=== PATIENT | male | born 1955 | race Caucasian/White ===

== ENCOUNTER 2022-05-18 09:04 | Observation (INO) ==
--- NOTE | 2022-03-11 08:59 | PAT Medication Instructions ---
Medication Instructions Date of Service March 11, 2022 Home Medications acetaminophen 500 mg tablet 1,000 - 1,500 mg PO Q6H PRN amlodipine 10 mg-benazepril 40 mg capsule 1 cap PO QPM aspirin 81 mg tablet,delayed release 81 mg PO QAM dulaglutide 0.75 mg/0.5 mL subcutaneous pen injector (Trulicity) 0 mg SUBCUT WK escitalopram oxalate 20 mg tablet (Lexapro) 20 mg PO HS hydrochlorothiazide 12.5 mg capsule 12.5 mg PO QAM insulin glargine 100 unit/mL (3 mL) subcutaneous pen (Basaglar KwikPen U-100 Insulin) 74 unit SUBCUT HS simvastatin 20 mg tablet 20 mg PO HS Continue as directed dulaglutide 0.75 mg/0.5 mL subcutaneous pen injector (Trulicity) 0 mg SUBCUT WK (not day of surgery) DO NOT take the morning of surgery hydrochlorothiazide 12.5 mg capsule 12.5 mg PO QAM Take morning of surgery With a small sip of water, OTHERWISE NOTHING TO EAT OR DRINK AFTER MIDNIGHT: acetaminophen 500 mg tablet 1,000 - 1,500 mg PO Q6H PRN(okay to take up to 4 hours prior to surgery if needed) aspirin 81 mg tablet,delayed release 81 mg PO QAM (unless directed otherwise by surgeon) Take evening before surgery acetaminophen 500 mg tablet 1,000 - 1,500 mg PO Q6H PRN(if needed) amlodipine 10 mg-benazepril 40 mg capsule 1 cap PO QPM escitalopram oxalate 20 mg tablet (Lexapro) 20 mg PO HS simvastatin 20 mg tablet 20 mg PO HS insulin glargine 100 unit/mL (3 mL) subcutaneous pen (Basaglar KwikPen U-100 Insulin) 74 unit SUBCUT HS Other Notes If you have any questions please call us at [phone] or [phone] or [phone] or [phone]
--- NOTE | 2022-04-15 09:51 | Anesthesiology Consultation ---
Date of Service April 15, 2022 Assessment & Plan (1) Encounter for pre-operative examination: - COVID screening: Per assessment on 04/15: No known COVID-19 positive contacts or current COVID-19 related symptoms. Travel screen negative. Patient not vacci nated and reports only wearing mask in medical facilities. Since patient requiring admission post-operatively and non-compliance with mask wearing in public, will recheck with COVID [place] AM DOS. Order placed. - Check BSG AM DOS - Hx anesthesia issues: Per patient, spinal took multiple attempts with remote ankle surgery- he states he was told it was d/t "thick muscles" in the region. Discussed SAB vs. GA. OR aware of possible general anesthesia. Chart Review Chart Review: Acceptable Risk for Surgery and Patient seen in Pre Admission Testing Teaching & Discussion Pre-Anesthesia Teaching/Discussion Notes: Instructed NPO after midnight before surgery,except medications with 15 cc of water. Medication instructions provided according to the PAT guidelines. History Surgery Operation Date: 05/18/22 12:50 Proposed Procedures p Right Total Knee Arthroplasty - Carl Vicente DO Height/Weight Height: 6 ft 2 in Weight: 115.3 kg Allergies Allergy/AdvReac Type Severity Reaction Status Date / Time naproxen AdvReac Severe Anaphylaxis Verified 04/12/22 13:20 Medications Home Medications Medication Instructions Recorded Confirmed Last Taken acetaminophen 500 mg tablet 1,000 - 1,500 mg PO Q6H PRN 03/10/22 04/12/22 Unknown amlodipine 10 mg-benazepril 40 mg 1 cap PO QPM 03/10/22 04/12/22 Unknown capsule aspirin 81 mg tablet,delayed 81 mg PO QAM 03/10/22 04/12/22 Unknown release dulaglutide 0.75 mg/0.5 mL 0 mg SUBCUT WK 03/10/22 04/12/22 Unknown subcutaneous pen injector (Trulicity) escitalopram oxalate 20 mg tablet 20 mg PO HS 03/10/22 04/12/22 Unknown (Lexapro) hydrochlorothiazide 12.5 mg capsule 12.5 mg PO QAM 03/10/22 04/12/22 Unknown insulin glargine 100 unit/mL (3 74 unit SUBCUT HS 03/10/22 04/12/22 Unknown mL) subcutaneous pen (Osvaldoaglar Mery U-100 Insulin) simvastatin 20 mg tablet 20 mg PO HS 03/10/22 04/12/22 Unknown Past Medical History Medical History Diabetes mellitus, type 2 IDDM Hyperlipidemia Hypertension Kidney stones Post traumatic stress disorder Exercise / Class Metabolic Activity II 4-5 Yardwork/Stairs/Walk up hill (one FS (no CP, no SOB)) Past Family History Family History Grandfather (Paternal) Family history of diabetes mellitus Past Surgical History Surgical History History of ankle surgery RIGHT X2 History of arthroscopy RIGHT KNEE X2 History of arthroscopy LEFT KNEE X1 History of cardiac cath 30 YRS AGO > NO STENTS History of colonoscopy 2020 History of rectal surgery Past Anesthesia History No Hx of Anesthesia Complications and No Family Hx of Anesthesia Complications History of PONV No Hx of PONV and No Hx of Motion Sickness Social History Smoking Status: Never smoker Do You Dip or Chew Tobacco: No Hx Alcohol Use: Yes alcohol intake frequency: holidays/special occasions only Hx Substance Use: No Review of Systems Patient denies chest pain, shortness of breath, dyspnea on exertion, fever, chills, cough, wheezing, palpitations. Physical Exam Vital Signs VITALS BP 137/75 P 73 TEMP 98.2 SP02 95%RA RESP 16 PHYSICAL Full cervical extension range of motion. Full TMJ range of motion. TMD 3 finger breaths Mallampati Score 3 Dentition: intact, several crowns Lungs: clear throughout to auscultation Cardiac: regular rate and rhythm, no murmurs noted Spine: normal Carotid arteries: negative bruit Extremities: no edema Lab Results Anesthesia Preop Results Results Anesthesia Widget: WBC 8.48 K/uL (4.8-10.8) 04/15/22 Hgb 13.9 g/dL (14.0-18.0) L 04/15/22 Hct 40.7 % (42-52) L 04/15/22 Plt 266 K/uL (130-400) 04/15/22 Na 136 mmol/L (136-145) 04/15/22 K 3.8 mmol/L (3.5-5.1) 04/15/22 Cl 103 mmol/L (98-107) 04/15/22 CO2 26 mmol/L (21-32) 04/15/22 BUN 22 mg/dl (6-23) 04/15/22 Creat 1.04 mg/dl (0.6-1.4) 04/15/22 Glucose Level 332 mg/dl (70-99(Fasting)) H* 04/15/22 PT 10.0 Seconds (9.0-12.0) 04/15/22 PTT 25.3 Seconds (21.0-31.0) 04/15/22 INR 0.9 (0.9-1.1) 04/15/22 HA1c 7.6 % (4.5-5.6) H 04/15/22 Urine Color Yellow 04/15/22 Urine Appearance Clear (Clear) 04/15/22 Urine pH 5.0 (4.5-7.5) 04/15/22 Urine Specific [place] 1.027 (1.000-1.030) 04/15/22 Urine Protein Negative (Negative) 04/15/22 Urine Glucose (UA) 3+ (Negative) H 04/15/22 Urine Ketones Negative (Negative) 04/15/22 Urine Blood 3+ (Negative) H 04/15/22 Urine Nitrite Negative (Negative) 04/15/22 Urine Bilirubin Negative (Negative) 04/15/22 Urine Urobilinogen Negative (Negative) 04/15/22 Urine Leukocyte Esterase Negative (Negative) 04/15/22 Urine WBC (Auto) 1-5 /hpf (0-5) 04/15/22 Urine RBC (Auto) 10-30 /hpf (0-4) H 04/15/22 Urine Hyaline Casts (Auto) 1-5 /lpf (0-5) 04/15/22 Urine Epithelial Cells (Auto) >30 /lpf (0-5) H 04/15/22 Urine Bacteria (Auto) Negative (Negative) 04/15/22 Blood Type A Negative 04/15/22 Antibody Screen NEGATIVE 04/15/22 Testing Laboratory Results Glucose elevated at 332 but A1C 7.6% (EAG > 171) Roxana at surgeon's office made aware* Electrocardiogram Date: 04/15/22 NSR at 73bpm. Chest X-Ray Date: 04/15/22 Findings: + NAD
--- NOTE | 2022-04-25 08:11 | History & Physical Report ---
Date of Service April 25, 2022 date of surgery: 05/18/22 Procedure: Right Total Knee Arthroplasty Surgeon: Carl Vicente Assessment & Plan (1) Arthritis of right knee: Plan: Further care discussed with patient and at this point in time has failed conservative measures and would like to proceed with a right total knee replacement. Plan on discharge will be home with home health physical therapy. DVT prophylaxiswith TEDs, SCDs and will also place on aspirin 81 mg p.o. b.i.d. for a month postop. Patient will have follow up appointment in our office two weeks post op for staple/suture removal and re-evaluation. Patient otherwise has no other questions or concerns. The risks and benefits have been discussed including, but not limited to, risk of infection, nerve injury, stiffness, loss of motion, failure to improve, etc. Reasonable outcomes and options of treatment were discussed. An explanation of appropriate alternatives to the procedure that may be advantageous were discussed and their risks and benefits, as well as the risks and benefits of not proceeding with treatment. I offered to answer any additional inquiries concerning the treatment involved. All the patient's questions were answered. The patient is agreeable, understanding of the treatment plan and alternatives, and wishes to proceed with the treatment plan. History of Present Illness Chief Complaint: Right knee pain Primary Care Provider: MD Javier Parson is a 66 year old male who complains of right knee pain, presents for pre- op evaluation prior to a right total knee replacement by Dr Vicente at [facility]. He complains of pain and stiffness in his right knee. He states that the symptoms occur constantly with intermittent worsening and that his symptoms are moderate- severe. The pain is described as aching, sharp and throbbing and rated as 7/10. His symptoms are aggravated by ascending stairs, daily activities, first steps while awake walking. He is unable to take NSAIDs due to allergy. He has been treated with previous visco injections in the past without much relief. He has prior history of right knee ACL repair in 1999 in [place]. Allergies Allergy/AdvReac Type Severity Reaction Status Date / Time naproxen AdvReac Severe Anaphylaxis Verified 04/12/22 13:20 Home Medications Medication Instructions Recorded Confirmed Type acetaminophen 500 mg tablet 1,000 - 1,500 mg PO Q6H PRN 03/10/22 04/12/22 History amlodipine 10 mg-benazepril 40 mg 1 cap PO QPM 03/10/22 04/12/22 History capsule aspirin 81 mg tablet,delayed 81 mg PO QAM 03/10/22 04/12/22 History release dulaglutide 0.75 mg/0.5 mL 0 mg SUBCUT WK 03/10/22 04/12/22 History subcutaneous pen injector (Trulicity) escitalopram oxalate 20 mg tablet 20 mg PO HS 03/10/22 04/12/22 History (Lexapro) hydrochlorothiazide 12.5 mg capsule 12.5 mg PO QAM 03/10/22 04/12/22 History insulin glargine 100 unit/mL (3 74 unit SUBCUT HS 03/10/22 04/12/22 History mL) subcutaneous pen (Basaglar KwikPen U-100 Insulin) simvastatin 20 mg tablet 20 mg PO HS 03/10/22 04/12/22 History Past Med/Surg History Medical History Diabetes mellitus, type 2 IDDM Hyperlipidemia Hypertension Kidney stones Post traumatic stress disorder Surgical History History of ankle surgery RIGHT X2 History of arthroscopy RIGHT KNEE X2 History of arthroscopy LEFT KNEE X1 History of cardiac cath 30 YRS AGO > NO STENTS History of colonoscopy 2020 History of rectal surgery Family History Grandfather (Paternal) Family history of diabetes mellitus Social History Smoking Status: Never smoker Second Hand Exposure: No; Hx Alcohol Use: Yes Hx Substance Use: No Preferred Language: Andorran Communication Ability: Effective Crimper Assembler Required: No Beliefs That Will Affect Care: None Current Living Situation: Spouse current occupational status: retired Feels Safe at Home: Yes Assistive Devices: None Review of Systems Review of Systems: All systems reviewed & are unremarkable except as noted in HPI & below Constitutional: no fever, no chills and no sweats Respiratory: no cough and no dyspnea Cardiovascular: no chest pain, no dyspnea and no orthopnea Gastrointestinal: no abdominal pain, no nausea and no vomiting Musculoskeletal: as per Subjective / HPI Physical Exam Physical Exam: HT: 6ft 2in WT: 115.3kg Constitutional: WD/WN, vitals as above no acute distress Respiratory: normal respiratory effort, lungs clear to auscultation no respiratory distress, no labored breathing and does not use accessory muscles Cardiovascular: RRR, no murmur, no edema Gastrointestinal (Abdomen): normal bowel sounds, soft, nontender, no hepatosplenomegaly Musculoskeletal: Knee: + knee abnormal to inspection (RIGHT KNEE- ), + effusion (+1 effusion), + surgical incision (well healed portals), + limited ROM of knee (ROM 0/3/110), + knee ROM with crepitation, + joint line tenderness (medial joint line) and + Jazzmine's sign positive; no deformity, no skin erythema, no ecchymosis, no valgus laxity, no varus laxity, anterior drawer test negative, John's sign negative and pivot shift test negative Results & Data Results & Data ([facility]) Diagnostic Findings Right Knee X-ray: Right knee series showing advanced degenerative changes to the right knee, narrowing of the medial compartment and patello-femoral joint with patellar spurring noted, findings showing joint space narrowing of the medial compartment and patello-femoral joint, osteophyte formation and subchondral sclerosis noted, femoral screw in place from prior ACL surgery. overall varus alignment. no acute bony pathology noted.
[~2022-05-18 09:04] MED LIST: ACETAMINOPHEN 500 MG TAB PO SCH; ALLERGY Noted to ORDERED Medication SCH; BUPIVACAINE 0.25% 30 ML VIAL ONE; BUPIVACAINE 0.5 % 5 MG/1 ML PF 10ML VIAL ONE; DEXAMETHASONE SOD INJ 4 MG/ML VIAL ONE; EPINEPHrine INJ 1 MG/ML AMP ONE; FAMOTIDINE 20 MG TAB PO SCH; GABAPENTIN 300 MG CAP PO SCH; LR 500ML BOLUS, THEN 15ML/HR IV SCH; METOCLOPRAMIDE HCL 10 MG TABLET PO SCH; ROPIVACAINE 0.5% HCL/PF 150 MG, BUPIVACAINE 0.75% MPF 20 ML, EPINEPHrine 30MG/30ML (OR ... INFIL SCH; TRANEXAMIC ACID 1,000 MG **IV Intra-op IV SCH; TRANEXAMIC ACID 1,000 MG **IV Pre-op IV SCH; ceFAZolin 2000MG 2,000 MG/15 ML SYR IV SCH; dexAMETHasone 4 MG TAB PO SCH; oxyCODONE HCL 10 MG TABCR (OxyCONTIN) PO SCH
--- NOTE | 2022-05-18 10:02 | History & Physical Bridge Note ---
Date of Service May 18, 2022 History & Physical Bridge Note I have examined the patient, reviewed the History & Physical and in the interval since the performance of the History & Physical I have noted the following changes of clinical significance: no changes noted
[2022-05-18] MEDS ORDERED: PROPOFOL IV EMULSION 10 MG/ML 20 ML VIAL IV ONE (10:09)
[2022-05-18] MEDS ORDERED: ePHEDrine sulfate 50 MG/ML AMP ONE (10:09)
[2022-05-18] MEDS ORDERED: LIDOCAINE 2% 2 ML VIAL/AMP(20MG/ML) INFIL ONE (10:09)
[2022-05-18] MEDS ORDERED: fentaNYL citrate 100 MCG/2 ML VIAL ONE (10:09)
[2022-05-18] MEDS ORDERED: MIDAZOLAM HCL 1 MG/ML 2ML VIAL ONE (10:09)
[2022-05-18] MEDS ORDERED: ORTHO JOINT ANESTHETIC ONE (11:38)
[2022-05-18] MEDS ORDERED: fentaNYL citrate 100 MCG/2 ML VIAL IV PRN (12:22)
[2022-05-18] MEDS ORDERED: ATROPINE SULFATE 0.1 MG/ML 10ML SYR IV PRN (12:22)
[2022-05-18] MEDS ORDERED: ONDANSETRON INJ 2 MG/ML 2 ML VIAL IV PRN ×2 (12:22→16:12)
[2022-05-18] MEDS ORDERED: ePHEDrine sulfate 50 MG/ML AMP IV PRN (12:22)
--- NOTE | 2022-05-18 14:02 | Operative Report ---
Post Operative Report Pre & Post Diagnosis Operation Date: 05/18/22 11:40 Pre-Op Diagnosis: Right Knee Osteoarthritis Post-Op Diagnosis: Right Knee Osteoarthritis I identified the patient and participated in the time-out.: Yes Procedure Operation Date: 05/18/22 11:40 Actual Procedures p Right Total Knee Arthroplasty(Right) utilizing [employer] persona patient matched size femur 12 standard tibia G polyten patella 34 oval Carl Vicente DO Surgeon Carl Vicente DO [facility] DAVID Mendoza Estimated Blood Loss 5 Findings Consistent with Post-Op Diagnosis Patient presents with severe end-stage tricompartmental degenerative joint disease and remote history of ACL reconstruction with marked anterior scarring and fibrosis tightness around his patellar tendon he had severe end-stage tricompartmental DJD varus alignment eburnated [id number] with a moderate to large effusion Specimens Bone and cartilage Drains Medium bore Hemovac Anesthesia Type MAC Spinal Regional Complications none Disposition Accompanied Patient To Recovery: No Disposition: Recovery Room Indications Patient presents with severe end-stage tricompartmental DJD right knee after failed attempted conservative management clinic physical therapy anti- inflammatories relative rest activity modification steroid injection viscosupplementation the above intraoperative findings were noted Description of Procedure After proper prepping and draping of the Right lower extremity anterior midline incision was made over the region of the extensor extensor mechanism after meticulous hemostasis was obtained and maintained in subcutaneous tissues a medial parapatellar incision was made The patella was subluxed lateralward the medial lateral gutter were cleaned from any hypertrophic synovitis and scar tissue of the distal femoral block was placed and the distal femoral osteotomy cut was made subsequently the chamfers anterior and posterior osteotomy cuts were made utilizing the 4-in-1 block the tibia was subsequently subluxed anteriorward medial and ateral meniscal remnants were excised in their entirety remnants of the anterior and posterior cruciate ligaments were excised in their entirety excellent exposure of the proximal tibia was obtained the tibial osteotomy guide was placed on the proximal tibial osteotomy cut was made once again the knee was irrigated with copious amounts of sterile saline solution the patella was subsequently everted lateralward thickened scar tissue around the patella was removed the patella was subsequently cut utilizing a freehand technique and was drilled prepared for final preparation and placement of patella socially flexion-extension gaps were checked and the equal and symmetric trials were placed to the appropriate femoral and tibial trials with poly-spacer being placed for equal flexion and extension gaps and full range of motion including extension to 0 and flexion to 140 the trial components after having been taken to recovery range of motion was subsequently removed meticulous hemostasis was obtained and maintained subsequently a knee block injection of joint cocktail including ropivacaine 0.5% 150 mg. Bupivacaine 0.5% epinephrine 1-200,030 mL's toradol 30 mg dexamethasone 4 mg ketamine 10 mg clonidine 100 micrograms normal saline solution 30 mg was infiltrated into the soft tissues of the posterior knee medial lateral gutters and periosteal synovium special attention was paid to protect neurovascular structures at all times subsequently trial components having been removed the knee was irrigated with sterile saline solution. debris was removed the proximal tibia was subsequently prepared and was made ready for the placement of the tibial component tibial component was also cemented and tamped into position the femoral component was subsequently placed and cemented in the position the patellar component was subsequently cemented in position because hemostasis once again obtained and maintained wound having been thoroughly irrigated with debridement and debridement lavage was performed as well as a medial parapatellar incision closed with #1 Vicryl in interrupted fashion subcutaneous was closed with #2 Vicryl skin was closed with skin clips. PA-C was necessary for prepping and drapping as well as wound closure of deep fascia Sub cutaneous tissue and skin and was necessary for the case. A sterile compressive dressing was placed patient was taken to recovery in stable condition of report dictated by Jules I attest to the content of the Intraoperative Record and any orders documented therein. Any exceptions are noted below.Due to the complex nature of the procedure, the entire surgery was performed with the operational assistance of DAVID Mendoza The credentialing assistant, under direct supervision, was involved in the actual performance of all aspects of the surgical procedure including hemostasis, tissue retraction and incision, instrument management, patient positioning, and wound closure. I attest to the content of the Intraoperative Record and any orders documented therein. Any exceptions are noted below.
--- NOTE | 2022-05-18 14:58 | XRay Report ---
XR knee RT 1 or 2V routine HISTORY: 66 years-old Male Surgical Post Op right knee total joint replacement COMPARISON: CT of the right knee 04/15/2022 TECHNIQUE: 2 views of the right knee FINDINGS: Total joint arthroplasty with patellar resurfacing. Surgical drainage catheter is present along with expected postoperative soft tissue swelling with deep tissue air. Degenerative marginal spurring of t he patella. Arterial calcifications. No acute fracture, malalignment or unexpected opaque foreign bod y. IMPRESSION: Total joint arthroplasty with expected postoperative changes. ACT 112: Negative or not required by law. The above report was generated using voice recognition software. It may contain grammatical, syntax o r spelling errors. Electronically signed by: Rony Howard M.D. 05/18/2022 2:56 PM
--- NOTE | 2022-05-18 15:32 | Anesthesiology Progress Note ---
Date of Service May 18, 2022 Anesthesia Post Procedure Vital Signs Vital Signs: Temp Pulse Pulse Resp BP Pulse Ox 05/18/22 15:15 36.5 C 84 20 107/68 94 05/18/22 15:05 78 20 113/64 93 05/18/22 14:55 76 20 129/67 94 05/18/22 14:45 81 12 114/67 95 05/18/22 14:36 36.7 C 85 16 108/66 95 05/18/22 09:32 36.9 C 78 20 131/73 97 Transfer of Care Handoff Completed per policy Notes Mental Status: alert / awake / arousable Patient Amnestic to Procedure: Yes Nausea / Vomiting: adequately controlled Pain: adequately controlled Airway Patency, RR, SpO2: stable & adequate BP & HR: stable & adequate Hydration State: stable & adequate Neuraxial Anesthesia: was administered and sensory block is resolving Anesthetic Complications: no major complications apparent
[2022-05-18] MEDS ORDERED: INFLUENZA VACCINE HIGH DOSE PF 65+ 0.7 ML SYR IM ONE (16:11)
[2022-05-18] MEDS ORDERED: METOCLOPRAMIDE HCL INJ 5 MG/ML 2 ML VIAL IV PRN (16:12)
[2022-05-18] MEDS ORDERED: MAGNESIUM HYDROXIDE SUSP 30 ML UDC PO PRN (16:12)
[2022-05-18] MEDS ORDERED: HYDROmorphone INJ 1 MG/ML SYRINGE IV PRN (16:12)
[2022-05-18] MEDS ORDERED: bisacodyL 10 MG SUPP PR PRN (16:12)
[2022-05-18] MEDS ORDERED: NALOXONE HCL 0.4 MG/1 ML VIAL/CARP IV PRN (16:12)
[2022-05-18] MEDS ORDERED: PHARMACY GLYCEMIC MGMT CONSULT PRN (16:12)
[2022-05-18] MEDS ORDERED: diphenhydrAMINE Capsule 25 MG CAP PO PRN (16:12)
[2022-05-18] MEDS ORDERED: DEXTROSE 50% 50 ML SYRINGE IV PRN (16:30)
[2022-05-18] MEDS ORDERED: CARBOHYDRATES FOR HYPOGLYCEMIA PO PRN (16:30)
[2022-05-18] MEDS ORDERED: GLUCOSE 10 TABS/TUBE PO PRN (16:30)
[2022-05-18] MEDS ORDERED: GLUCAGON FOR INJ 1 MG VIAL IM PRN (16:30)
[2022-05-18] MEDS ORDERED: GLUCOSE 40% GEL 15 GM TUBE PO PRN (16:30)
[2022-05-18] MEDS: SODIUM CHLORIDE 0.9% 1000ML 1,000 ML IV SCH ×2 (16:59→17:05)
[2022-05-18] MEDS: INSULIN ASPART PER UNIT SC SCH ×2 (17:22→22:13)
[2022-05-18] MEDS: DOCUSATE SODIUM 100 MG CAP PO SCH (20:11)
[2022-05-18] MEDS: ceFAZolin 2000MG 2,000 MG/15 ML SYR IV SCH (20:18)
[2022-05-18] MEDS ORDERED: SIMVASTATIN 20 MG TAB PO SCH (21:00)
[2022-05-18] MEDS ORDERED: INSULIN GLARGINE SOLOSTAR 100 UNITS/ML 3 ML PEN SQ SCH (21:00)
[2022-05-18] MEDS ORDERED: SENNA 8.6 MG TAB PO SCH (21:00)
[2022-05-18] MEDS ORDERED: ESCITALOPRAM OXALATE 20 MG TAB PO SCH (21:00)
[2022-05-18] MEDS ORDERED: ENALAPRIL MALEATE 10 MG TAB PO SCH (21:30)
[2022-05-18] MEDS ORDERED: amLODIPine BESYLATE 5 MG TAB PO SCH (21:30)
[2022-05-18] MEDS: LANTUS PER UNIT CHARGE SQ SCH (22:14)
[2022-05-18] MEDS: ACETAMINOPHEN 500 MG TAB PO SCH (22:17)
[2022-05-19] MEDS: INSULIN ASPART PER UNIT SC SCH ×4 (00:54→12:35)
[2022-05-19] MEDS: ceFAZolin 2000MG 2,000 MG/15 ML SYR IV SCH (04:43)
[2022-05-19] MEDS: oxyCODONE HCL IR 5 MG TAB (IMMEDIATE RELEASE) PO PRN ×2 (05:04→14:57)
[2022-05-19 06:25] LABS: Hematocrit (blood only) 35.7 % (42-52); Hemoglobin 12.3 g/dL (14.0-18.0); Mean Corpuscular Hemoglobin 31.5 pg (25-34); Mean Corpuscular Hgb Conc 34.5 g/dL (32-36); Mean Corpuscular Volume 91.5 fL (80-100); Mean Platelet Volume 9.1 fL (7.4-10.4); Platelet Count 258 K/uL (130-400); RDW Coefficient of Variation 13.4 % (11.5-14.5); RDW Standard Deviation 44.7 fL (36.4-46.3)
[2022-05-19] MEDS: ACETAMINOPHEN 500 MG TAB PO SCH ×2 (06:38→13:51)
[2022-05-19 06:46] LABS: BUN Creatinine Ratio 25.7 (10-20); Calcium 8.6 mg/dl (8.5-10.1); Creatinine Clr Calc Pharmacy 88.1 ml/min; Est GFR (Non-African American) 69.9 ml/min; Potassium 3.9 mmol/L (3.5-5.1)
[2022-05-19] MEDS: DOCUSATE SODIUM 100 MG CAP PO SCH (08:17)
[2022-05-19] MEDS: LANTUS PER UNIT CHARGE SQ SCH (08:25)
[2022-05-19] MEDS ORDERED: MULTIVITAMIN TAB PO SCH (09:00)
[2022-05-19] MEDS ORDERED: ESCITALOPRAM OXALATE 20 MG TAB PO SCH (09:00)
[2022-05-19] MEDS ORDERED: RIVAROXABAN 10 MG TABLET PO SCH (09:00)
--- NOTE | 2022-05-19 09:05 | Pharmacy Report ---
Pharmacy Glycemic Short Note 2 - Date of Service May 19, 2022 - Glycemic Short BSG Results (Last 24 hours): 05/18/22 05/18/22 05/18/22 09:26 14:37 16:31 Glucose POC Glucose 195 H 183 H 222 H 05/18/22 05/18/22 05/18/22 20:40 20:42 20:46 Glucose POC Glucose 392 H* 332 H* 352 H* 05/18/22 05/19/22 05/19/22 21:24 00:43 04:38 Glucose 399 H* POC Glucose 294 H 183 H 05/19/22 05/19/22 05:55 08:10 Glucose 177 H POC Glucose 184 H OUTPATIENT ANTIDIABETIC REGIMEN: * Lantus 74 units SC HS * Trulicity 0.75 mg SC weekly HbA1c: 7.6% (04/15/22) ASSESSMENT: * EO is a 66 year old male POD #1 s/p right total knee arthroplasty * Received dexamethasone 4 mg IV, 8 mg PO, and intra-articular ortho mix containing dexamethasone in OR * BSGs significantly elevated postoperatively (183, 222, 399 mg/dL) * Fasting BSG of 184 mg/dL this morning * Expect BSGs to improve now that no ongoing steroids are ordered * Will tighten Novolog parameters today with breakfast PLAN FOR INPATIENT GLYCEMIC CONTROL: * Basal insulin * Lantus 20-30 units SC BID (see EHR for details) * Bolus insulin * NovoLog per scale ACHS or Q6hrs while NPO * Goal Range: Low 110 mg/dL - High 140 mg/dL * Correction Factor: 15 mg/dL/unit * Nutritional / Prandial insulin per carb ratio of 1 unit per 5 grams CHO consumed
--- NOTE | 2022-05-19 09:11 | Orthopedic Progress Note ---
Date of Service May 19, 2022 Assessment & Plan (1) Arthritis of right knee: Plan: Postop day 1 status post right total knee arthroplasty PT/OT protocols. Weightbearing as tolerated. DVT prophylaxis-rivaroxaban p.o. daily, SCDs, ELVIN leach. Pain management as written. I have spoken to pharmacy about the patient's blood sugars. They are now coming down nicely and spikes up to 300+ were likely felt to be due to preoperative steroids. DC planning-patient states that he is discussed with case management about getting home health PT. They are in the process of working on that. We will stop back and check on the patient later today to see how he is progressing for possible discharge to home pending case management arranging home health and rechecking his blood sugars. Admission and Anticipated Discharge Date Admission Date: May 18, 2022 Subjective Postop day 1 Patient sitting up in bed awake and alert. He is finished his breakfast. No overt complaints this morning mild soreness in the operative knee. States that his blood sugars have been running high off and on. Questions about his insulin that pharmacy is using of which we discussed in detail. Patient understands. No other complaints. Denies shortness of breath, chest pain, lightheadedness. Physical Exam Physical Exam: Dressings are clean, dry, and intact. Calves are soft nontender. He has some mild numbness residual in his dorsum of the foot. He has good range of motion and strength with dorsiflexion and plantarflexion of the right foot. Hemovac drainage was 175 mL from the previous shift. Results & Data ([facility]) Vital Signs (Past 12 Hours) Vital Signs Temp Pulse Pulse Resp BP Pulse Ox 05/19/22 07:26 36.6 C 72 20 103/57 L 93 05/19/22 03:31 36.5 C 82 18 132/70 96 05/18/22 23:30 36.7 C 88 18 119/69 95 Laboratory Results Laboratory Results WBC 14.20 K/uL (4.8-10.8) H 05/19/22 05:55 RBC 3.90 M/uL (4.7-6.1) L 05/19/22 05:55 Hgb 12.3 g/dL (14.0-18.0) L 05/19/22 05:55 Hct 35.7 % (42-52) L 05/19/22 05:55 MCV 91.5 fL (80-100) 05/19/22 05:55 MCH 31.5 pg (25-34) 05/19/22 05:55 MCHC 34.5 g/dL (32-36) 05/19/22 05:55 RDW Std Deviation 44.7 fL (36.4-46.3) 05/19/22 05:55 RDW Coeff of Gilmer 13.4 % (11.5-14.5) 05/19/22 05:55 Plt Count 258 K/uL (130-400) 05/19/22 05:55 MPV 9.1 fL (7.4-10.4) 05/19/22 05:55 Sodium 135 mmol/L (136-145) L 05/19/22 05:55 Potassium 3.9 mmol/L (3.5-5.1) 05/19/22 05:55 Chloride 105 mmol/L (98-107) 05/19/22 05:55 Carbon Dioxide 23 mmol/L (21-32) 05/19/22 05:55 Anion Gap 7 (3-11) 05/19/22 05:55 BUN 28 mg/dl (6-23) H 05/19/22 05:55 Creatinine 1.09 mg/dl (0.6-1.4) 05/19/22 05:55 Est Cr Clr Drug Dosing 88.1 ml/min 05/19/22 05:55 Est GFR ( Amer) 81.0 ml/min 05/19/22 05:55 Est GFR (Non-Af Amer) 69.9 ml/min 05/19/22 05:55 BUN/Creatinine Ratio 25.7 (10-20) H 05/19/22 05:55 Glucose 177 mg/dl (70-99(Fasting)) H 05/19/22 05:55 POC Glucose 184 mg/dl (70-99) H 05/19/22 08:10 Calcium 8.6 mg/dl (8.5-10.1) 05/19/22 05:55 SARS-CoV-2, RNA, NAAT NEGATIVE (NEGATIVE) 05/18/22 09:18 Impressions Knee X-Ray 05/18/22 14:39 XR knee RT 1 or 2V routine HISTORY: 66 years-old Male Surgical Post Op right knee total joint replacement COMPARISON: CT of the right knee 04/15/2022 TECHNIQUE: 2 views of the right knee FINDINGS: Total joint arthroplasty with patellar resurfacing. Surgical drainage catheter is present along with expected postoperative soft tissue swelling with deep tissue air. Degenerative marginal spurring of the patella. Arterial calcifications. No acute fracture, malalignment or unexpected opaque foreign body. IMPRESSION: Total joint arthroplasty with expected postoperative changes. ACT 112: Negative or not required by law. The above report was generated using voice recognition software. It may contain grammatical, syntax or spelling errors. Electronically signed by: Rony Howard M.D. 05/18/2022 2:56 PM
[2022-05-19] MEDS ORDERED: INSULIN ASPART PER UNIT SC ONE (09:15)
[2022-05-19] MEDS ORDERED: LANTUS PER UNIT CHARGE SQ SCH (21:00)
--- NOTE | 2022-05-20 06:53 | Discharge Summary ---
Date of Service date of admission: 05/18/22 date of discharge: 05/19/22 Admission HPI Per Admitting Provider Javier is a 66 year old male who complains of right knee pain, presents for pre-op evaluation prior to a right total knee replacement by Dr Vicente at [facility]. He complains of pain and stiffness in his right knee. He states that the symptoms occur constantly with intermittent worsening and that his symptoms are moderate- severe. The pain is described as aching, sharp and throbbing and rated as 7/10. His symptoms are aggravated by ascending stairs, daily activities, first steps while awake walking. He is unable to take NSAIDs due to allergy. He has been treated with previous visco injections in the past without much relief. He has prior history of right knee ACL repair in 1999 in [place]. Principal Diagnosis right knee arthritis Discharge Exam Musculoskeletal right knee: NVDI, calf SNT, negative kim sign. DP palpable, able to wiggle toes/ankle movement without difficulty. ONEIL dressing clean dry and intact. expected post-operative bruising noted. Discharge Data Allergies Allergy/AdvReac Type Severity Reaction Status Date / Time naproxen AdvReac Severe Anaphylaxis Verified 05/18/22 09:29 Procedures Performed Operation Date: 05/18/22 11:40 Actual Procedures p Right Total Knee Arthroplasty(Right) - Carl Vicente, Ordered Studies 05/18/22 05:00 US - OR guided needle placemen Routine Hospital Course (1) Arthritis of right knee: Postop day 1 status post right total knee arthroplasty PT/OT protocols. Weightbearing as tolerated. DVT prophylaxis-rivaroxaban p.o. daily, SCDs, ELVIN leach. Pain management as written. I have spoken to pharmacy about the patient's blood sugars. They are now coming down nicely and spikes up to 300+ were likely felt to be due to preoperative steroids. DC planning-patient states that he is discussed with case management about getting home health PT. They are in the process of working on that. We will stop back and check on the patient later today to see how he is progressing for possible discharge to home pending case management arranging home health and rechecking his blood sugars. Total Time Total Time Spent Total Time Spent (In Minutes): 20 Discharge Plan Discharge Items Patient Disposition: Home - Home Health Services Reason For Visit: Right Knee Osteoarthritis Discharge Diagnosis: RIGHT TOTAL KNEE REPLACEMENT Activity: Per Instructions section Weightbearing: Right weightbearing Weightbearing Comment: WBAT WITH WALKER Non-emergency contact: Surgeon Call non-emergency contact if: you have any medication questions, your temperature is above 101, your wound has increased redness, your wound has increased drainage and your wound pain has increased Follow-up/Referrals: Carl Vicente DO [Surgeon] - (Follow up with Dr. Vicente in 2 weeks from the day of surgery for your first post operative visit. ) Chi Garza MD [Primary Care Provider] - Diet: Carb Consistent or DM2 Addtl Attending Provider Instructions: ACTIVITY RECOMMENDATIONS: SELF CARE INSTRUCTIONS AFTER TOTAL KNEE REPLACEMENT A. You may need to continue a physical therapy program after discharge from the hospital. There are several options available to you. Your doctor will assist you in selecting the best one for you. 1. An out-patient facility 2 to 3 times a week for therapy or home therapy. 2. Continue working on all exercises taught to you in the hospital. Your goals should be to increase bending of your knee to 90 degrees and beyond and to fully straighten your knee. B. You may progress at your own pace from walking with a walker or crutches to a cane; then to no assistive devices. C. Make walking a part of your daily routine. Be up as much as comfortable with rest periods throughout the day. Rest with leg elevation is very important. Use the ice wrap frequently for the first 3-4 weeks. D. There are no restrictions on activities. You may ride in a car, shop, participate in airplane woodworker and all social activities. E. Wear the long elastic stockings (ELVIN hose) 20 hours a day for 2 weeks after surgery. They can be removed several times a day for laundering and for a bath. F. You may shower, no tub baths until cleared by your doctor. SPECIAL CARE INSTRUCTIONS: VERY IMPORTANT TO READ AND REVIEW A. There are a few signs you need to watch for after you are home. Call [facility] if you notice any of the followin. Increased severe knee pain. Some pain is expected especially when you exercise. 2. Increased swelling in your leg or knee; pain or swelling of the calf muscle in either lower leg. 3. Any fluid drainage from the incision. 4. Shortness of breath or chest pain. B. Please call [facility] at if you have any concerns or questions about your operation or recovery. The doctor or his nurse will return your call promptly. C. You must take antibiotics before dental work, bladder, bowel or other surgery. Your doctor will provide you with a permanent care to carry describing this precaution. IMPORTANT: * REMEMBER TO TAKE RIVAROXIBAN 10MG DAILY FOR 4 WEEKS UNLESS OTHERWISE DIRECTED. THIS IS YOUR BLOOD THINNER. * CALL IF INCREASED PAIN, REDNESS, DRAINAGE OR FEVER GREATER THAT 101. * WEAR ELVIN HOSE 20 HOURS PER DAY FOR 2 WEEKS. * ONEIL Dressing- This is a large suction dressing covering your incision. This will help pull any excess drainage from the wound and allow your incision to heal properly. You may shower with this if you can keep the unit outside of the shower. If any bleeding or leakage is noted please call your doctor's office. This will remain on your incision for 7 days and then should be remov ed. This can be done yourself or by the home nursing staff if applicable. The entire unit is disposable once removed. Once removed, keep incision clean and dry. If redness or drainage is noted, please call your surgeon. ONCE ONEIL IS REMOVED, FOLLOW THESE INSTRUCTIONS: DERMABOND Prineo- This is a mesh tape dressing that is covered with glue. It should remain in place until the incision is properly healed, usually 10-14 days. This dressing is designed to naturally slough off. You may trim the excess mesh tape as it peels off. Incision may be briefly wet in a shower. Dry immediately by blotting with a clean, dry towel. Do not bath or swim until instructed by your doctor. Do not scratch, rub, or pick at the dressing. Do not apply any topical ointments or lotions until dressing is completely removed and/or instructed by your doctor. There may be a small piece of suture material at one end of your incision. Do not pull or trim this. If it is bothersome or catching on clothing, you may cover it with a band-aid. IF INCISION IS LEAKING THROUGH DRESSING, CALL THE OFFICE . FOLLOW UP VISIT: If appointment is not already scheduled: Please call [facility] to make a follow-up appointment for 2 weeks after your surgery at . PLEASE FOLLOW UP WITH YOUR PRIMARY CARE PHYSICIAN FOR BLOOD SUGAR CHECK UP IN 1 WEEK. IF YOUR BLOOD SUGARS REMAIN HIGH OVER THE NEXT SEVERAL DAYS, CONTACT HIM/HER SOONER. Stand-Alone Forms: [facility], Opioid Pain Management, Smoking Cessation Medications and DC Order Prescriptions: New Xarelto 10 mg Tablet 10 mg PO DAILY 30 Days Qty: 30 RF: 0 acetaminophen [Tylenol Extra Strength] 500 mg Tablet 1,000 mg PO Q8 14 Days Qty: 84 RF: 0 cefadroxil 500 mg capsule 500 mg PO BID Qty: 28 RF: 1 polyethylene glycol 3350 [Miralax] 17 gram powder in packet 17 g PO DAILY PRN (Reason: constipation) Qty: 5 RF: 0 oxycodone 5 mg Tablet 5 mg PO Q4H MDD 6 PRN (Reason: pain) Qty: 30 RF: 0 Continued aspirin 81 mg Tablet,Delayed Release (Dr/Ec) 81 mg PO QAM RF: 0 simvastatin 20 mg Tablet 20 mg PO HS RF: 0 hydrochlorothiazide 12.5 mg Capsule 12.5 mg PO QAM RF: 0 amlodipine-benazepril [Lotrel] 10-40 mg Capsule 1 cap PO QPM RF: 0 insulin glargine [Basaglar KwikPen U-100 Insulin] 100 unit/mL (3 mL) Insulin Pen 74 unit SUBCUT HS RF: 0 Trulicity 0.75 mg/0.5 mL Pen Injector 0 mg SUBCUT WK RF: 0 escitalopram oxalate [Lexapro] 20 mg Tablet 20 mg PO HS RF: 0 Discontinued acetaminophen [Tylenol Ex Str Rapid Release] 500 mg Tablet 1,000 - 1,500 mg PO Q6H PRN (Reason: Pain) RF: 0 Discharge Orders: Discharge Order (Routine); Ordered 05/19/22 Ordered By: Guilherme Simon/Other Patient Handouts: DVT Post Op Prevention, Knee Replacement Total Dc Admission Data Admit Date/Time: 05/18/22 14:39 Attending Provider: Carl Vicente Admit Provider: Carl Vicente Primary Care Provider: Chi Garza Other Providers: [facility],Home Healthcare Other Interventions: Discharge Summary Assessment (RN) Last Done: 05/19/22 14:41
== END 2022-05-19 15:48 | disposition home health service (06) ==
LOC: ASU 09:04 → 3E 09:04